=== PATIENT | male | born 1995 | race Caucasian/White ===

== ENCOUNTER 2022-03-27 17:29 | Emergency (ER) | payer MEDICAID ==
[~2022-03-27] VITALS: Ht 180.3 cm; Wt 73.5 kg
[2022-03-27 17:41] VITALS: BP 125/63
--- NOTE | 2022-03-27 17:44 | NUR ---
PT AMB TO BED 9.
[2022-03-27] MEDS ORDERED: BACTO TP (18:02)
--- NOTE | 2022-03-27 18:05 | NUR ---
26 y/o male bib self from home, pt presents to ed with c/o left foot possible foreign body sensation for 2 weeks. pt states he may have stepped on a twig accidentally while being barefoot. pt has callus/hard skin near site of pain/discomfort. no edema, discharge, bleeding or redness noted. a&ox4, ambulates with steady gait. pmh: denies nka
[2022-03-27 18:25] VITALS: BP 125/63
--- NOTE | 2022-03-27 18:26 | NUR ---
Patient discharged with v/s stable. Written and verbal after care instructions given and explained. Patient alert, oriented and verbalized understanding of instructions. Ambulatory with steady gait. All questions addressed prior to discharge. ID band removed. Patient advised to follow up with PMD. Rx of mupirocin (sent) given. Patient educated on indication of medication including possible reaction and side effects. Opportunity to ask questions provided and answered.
== END 2022-03-27 18:26 | disposition home or self-care (01) ==
LOC: MED 17:29
DX: L84 Corns and callosities (principal); Z79.2 Long term (current) use of antibiotics
CPT/HCPCS: 10120; 90471; 90715; 99284; 99285

== ENCOUNTER 2022-03-31 15:32 | Emergency (ER) | payer MEDICAID ==
[~2022-03-31] VITALS: Ht 180.3 cm; Wt 73.5 kg
[~2022-03-31 15:32] MED LIST: BACTO TP
[2022-03-31 16:01] VITALS: BP 126/72
--- NOTE | 2022-03-31 16:01 | NUR ---
26 y/o female, c/o left knee pain that started yesterday and worsened this morning. pt states it started after he went swimming yesterday, states he is unable to bend knee but is able to bear weight on left extremity. a&ox4, ambulates with steady gait, flexion and extension movements are hard. pmh: mcl, acl injury nka med: denies
--- NOTE | 2022-03-31 21:34 | NUR ---
CALLED NAME IN LOBBY NO RESPONSE
--- NOTE | 2022-03-31 22:19 | NUR ---
PT CALLED NO RESPONSE
--- NOTE | 2022-03-31 22:19 | NUR ---
PATIENT LEFT WITHOUT BEING SEEN BY DR. Christensen. NO FURTHER CARE PROVIDED FOR PATIENT.
== END 2022-03-31 22:19 | disposition left against medical advice (07) ==
LOC: MED 15:32
DX: M25.562 Pain in left knee (principal); G89.29 Other chronic pain; R03.0 Elevated blood-pressure reading, without diagnosis of hypertension; Z79.899 Other long term (current) drug therapy
CPT/HCPCS: 73562; 99283